=== PATIENT | female | born 1950 | race Two or more races ===

== ENCOUNTER 2021-06-27 05:55 | Day surgery (SDC) | payer OTHER ==
[~2021-06-27 05:55] MED LIST: ADULT LOW DOSE81 M1 PO; AMLODI PO; FORTAMET500 MG PO; HYDROCHLOROTHIA25 MG PO; LIPOFEN150 MG PO; LYRICA50 MG PO; SIMVAST PO; TOPROL XL25 M1 PO; [UNRECOGNIZED DRUG - OTHER] PO
[2021-06-27] MEDS ORDERED: MACROBID 100 M100 MG PO (12:49)
[2021-06-27] MEDS ORDERED: ULTRACET PO (12:50)
== END 2021-06-27 14:40 | disposition home or self-care (01) ==
LOC: CIR.AMB 05:55
PROVIDERS: ATTEND Obstetrics & Gynecology Gynecology
DX: N81.3 Complete uterovaginal prolapse (principal); Z20.822 Contact with and (suspected) exposure to COVID-19